=== PATIENT | female | born 1935 | race Caucasian/White ===

== ENCOUNTER 2024-05-21 12:34 | Emergency (ER) | payer OTHER, MEDICAID ==
[~2024-05-21] VITALS: Ht 154.9 cm; Wt 62.1 kg
[2024-05-21] MEDS ORDERED: ATENOLOL (13:02)
[2024-05-21] MEDS ORDERED: ASPIRIN (13:02)
[2024-05-21] MEDS ORDERED: LOSARTAN (13:02)
[2024-05-21] MEDS ORDERED: ISOSORBIDE (13:02)
[2024-05-21] MEDS ORDERED: LIPITOR (13:02)
[2024-05-21 13:10] LABS: BASOPHILS % (AUTO) 0.4 % (0.0-2.0); EOSINOPHILS % (AUTO) 0.7 % (0.0-7.0); HEMATOCRIT 36.9 % (31.2-41.9); HEMOGLOBIN 11.9 g/dL (10.9-14.3); LYMPHOCYTES # (AUTO) 0.8 K/uL (0.8-4.8); LYMPHOCYTES % (AUTO) 12.8 % (20.5-51.5); MEAN CORPUSCULAR HEMOGLOBIN 27.7 uug (24.7-32.8); MEAN CORPUSCULAR HGB CONC 32 g/dL (32.3-35.6); MONOCYTES # (AUTO) 0.3 K/uL (0.1-1.30); MONOCYTES % (AUTO) 5.4 % (0.0-11.0); NEUTROPHILS # (AUTO) 4.8 K/uL (1.8-8.9); NEUTROPHILS % (AUTO) 80.7 % (38.5-71.5); PLATELET COUNT (AUTO) 190 K/uL (179-408); RED CELL DISTRIBUTION WIDTH 13.4 % (12.3-17.7)
[2024-05-21 13:20] LABS: CALCIUM 9.4 mg/dL (8.5-10.1); CREATININE 1.1 mg/dL (0.6-1.3); POTASSIUM 4.5 mmol/L (3.5-5.1)
[2024-05-21 13:21] LABS: DIFFERENTIAL COMMENT 1
[2024-05-21 13:25] LABS: ALBUMIN 3.3 g/dL (3.4-5.0); BILIRUBIN,DIRECT 0.2 mg/dL (0.0-0.2); BILIRUBIN,TOTAL 0.8 mg/dL (0.2-1.0); TOTAL PROTEIN, SERUM 6.3 g/dL (6.4-8.2)
[2024-05-21] MEDS ORDERED: CLON0.1T PO (14:05)
[2024-05-21 14:23] VITALS: BP 156/67; TEMP 98; O2SAT 98
== END 2024-05-21 14:25 | disposition home or self-care (01) ==
LOC: ER 12:34
DX: I10 Essential (primary) hypertension (principal); Z79.82 Long term (current) use of aspirin; Z79.899 Other long term (current) drug therapy
CPT/HCPCS: 36415; 85025; 93005; A4606; A4663

== ENCOUNTER 2024-07-27 11:32 | Emergency (ER) | payer OTHER, MEDICAID ==
[~2024-07-27] VITALS: Ht 154.9 cm; Wt 68.0 kg
[~2024-07-27 11:32] MED LIST: ASPIRIN; ATENOLOL; CLON0.1T PO; ISOSORBIDE; LIPITOR; LOSARTAN
[2024-07-27 12:01] LABS: BASOPHILS % (AUTO) 0.3 % (0.0-2.0); EOSINOPHILS % (AUTO) 0.2 % (0.0-7.0); HEMATOCRIT 42.4 % (31.2-41.9); HEMOGLOBIN 13.9 g/dL (10.9-14.3); LYMPHOCYTES # (AUTO) 0.6 K/uL (0.8-4.8); LYMPHOCYTES % (AUTO) 7.6 % (20.5-51.5); MEAN CORPUSCULAR HEMOGLOBIN 27.9 uug (24.7-32.8); MEAN CORPUSCULAR HGB CONC 33 g/dL (32.3-35.6); MEAN CORPUSCULAR VOLUME 84.7 fL (75.5-95.3); MONOCYTES # (AUTO) 0.5 K/uL (0.1-1.30); MONOCYTES % (AUTO) 5.8 % (0.0-11.0); NEUTROPHILS # (AUTO) 7.1 K/uL (1.8-8.9); NEUTROPHILS % (AUTO) 86.1 % (38.5-71.5); PLATELET COUNT (AUTO) 240 K/uL (179-408); WHITE BLOOD COUNT (AUTO) 8.2 K/uL (3.8-11.8)
[2024-07-27 12:10] LABS: DIFFERENTIAL COMMENT 1
[2024-07-27 12:13] LABS: AMMONIA < 10 umol/L (11-32)
[2024-07-27 12:15] LABS: ETHANOL < 3 MG/DL (0-10)
[2024-07-27 12:23] LABS: CALCIUM 9.6 mg/dL (8.5-10.1); CARBON DIOXIDE 27 mmol/L (21-32); CHLORIDE 91 mmol/L (98-107); CREATININE 1.1 mg/dL (0.6-1.3); GLUCOSE 147 mg/dL (74-106); POTASSIUM 3.6 mmol/L (3.5-5.1); SODIUM SERUM 127 mmol/L (136-145); UREA NITROGEN, BLOOD 15 mg/dL (7-18)
[2024-07-27 12:29] LABS: ALANINE AMINOTRANSFERASE 22 U/L (14-59); ALBUMIN 3.8 g/dL (3.4-5.0); ALKALINE PHOSPHATASE 64 U/L (50-136); ASPARTATE AMINOTRANSFERASE 27 U/L (15-37); BILIRUBIN,DIRECT 0.3 mg/dL (0.0-0.2); TOTAL PROTEIN, SERUM 7.3 g/dL (6.4-8.2)
[2024-07-27 12:30] LABS: ACETAMINOPHEN < 10.0 ug/mL (10-30)
[2024-07-27 13:20] LABS: *BILIRUBIN,URIN NEGATIVE (NEGATIVE); *BLOOD, URINE NEGATIVE (NEGATIVE); *CLARITY,URINE CLEAR (CLEAR); *COLOR,URINE YELLOW (YELLOW); *KETONES,URINE TRACE (NEGATIVE); *PROTEIN,URINE 2+ (NEGATIVE); *UROBILINOGEN,URINE 0.2 E.U./dl (NORMAL); LEUKOCYTE ESTERASE ,URINE NEGATIVE (NEGATIVE); NITRITE, URINE NEGATIVE (NEGATIVE); PH,URINE 6.5 (5.0-8.0); UGLUCOSE NEGATIVE (NEGATIVE)
[2024-07-27 13:21] LABS: BACTERIA,URINE FEW /HPF (NONE SEEN); SQUAMOUS EPITHELIAL CELL,UR FEW /HPF (NONE SEEN); WBC,URINE 0-3 /HPF (0-3)
[2024-07-27 13:22] LABS: *URINE HCG, QUAL NEGATIVE (NEGATIVE)
[2024-07-27] MEDS ORDERED: hydrALAZINE HCL 20 MG/1 ML VIAL ONE (13:31)
[2024-07-27] MEDS ORDERED: ASPIRIN 325 MG TABLET ONE (13:31)
[2024-07-27 13:33] LABS: *AMPHETAMINE, URINE NEGATIVE (NEGATIVE); *BARBITURATE, URINE NEGATIVE (NEGATIVE); *BENZODIAZEPINE, URINE NEGATIVE (NEGATIVE); *CANNABINOID, URINE NEGATIVE (NEGATIVE); *COCCAINE, URINE NEGATIVE (NEGATIVE); *OPIATE, URINE NEGATIVE (NEGATIVE); *PHENCYCLIDINE SCREEN,URINE NEGATIVE (NEGATIVE); FENTANYL, URINE NEGATIVE (NEGATIVE)
[2024-07-27 13:40] VITALS: BP 219/78
[2024-07-27] MEDS: ASPIRIN 325 MG TABLET PO ONE (13:40)
[2024-07-27] MEDS: hydrALAZINE HCL 20 MG/1 ML VIAL IV ONE (13:40)
[2024-07-27] MEDS ORDERED: ATEN25TA PO (13:52)
[2024-07-27] MEDS ORDERED: LOSA25TA27 PO (13:52)
[2024-07-27] MEDS ORDERED: ISOS30TA86 PO (13:52)
[2024-07-27] MEDS ORDERED: ASPI81TA31 PO (13:52)
[2024-07-27] MEDS ORDERED: CLON0.1T PO (13:52)
[2024-07-27] MEDS ORDERED: LOSA50TA39 PO (13:52)
[2024-07-27] MEDS ORDERED: CYAN250010 PO (13:52)
[2024-07-27] MEDS ORDERED: ATOR10TA PO (13:52)
[2024-07-27] MEDS ORDERED: CHOL400D8 PO (13:52)
[2024-07-27] MEDS ORDERED: LEVO88TA5 PO (13:52)
[2024-07-27] MEDS ORDERED: HYDROCODONE/APAP 5-325MG TABLET ONE (14:53)
[2024-07-27] MEDS: HYDROCODONE/APAP 5-325MG TABLET PO ONE (15:00)
[2024-07-27 16:10] VITALS: O2SAT 99
[2024-07-27] MEDS ORDERED: LORAZEPAM 0.5 MG TABLET ONE (16:49)
[2024-07-27] MEDS: LORAZEPAM 0.5 MG TABLET PO ONE (17:32)
== END 2024-07-27 18:50 | disposition short-term general hospital (02) ==
LOC: ER 11:32
DX: R41.82 Altered mental status, unspecified (principal); R53.1 Weakness; R10.2 Pelvic and perineal pain; E78.5 Hyperlipidemia, unspecified; Z79.82 Long term (current) use of aspirin; Z20.822 Contact with and (suspected) exposure to COVID-19; Z79.899 Other long term (current) drug therapy; Z88.1 Allergy status to other antibiotic agents
CPT/HCPCS: 80076; 80048; 81001; 82140; 84703; 85025; 85730; 87426; 87040 ×2; 84484 ×2; 36415; 71045; 72170; 73502 ×2; 70450; 93005; 99291; 96374; 83605; 87086; 80299; 80320; 80307; J0360; J7040; A4606; A4663; C1758; G0480